=== PATIENT | male | born 1970 | race Caucasian/White ===

== ENCOUNTER 2024-11-02 07:39 | Emergency (ER) | payer MEDICARE, MEDICAID, SELFPAY ==
[2024-11-02 08:22] VITALS: BP 148/89; PULSE 106; RESP 18; TEMP 36.9; O2SAT 97
[2024-11-02 08:49] VITALS: PULSE 127; O2SAT 98; BMI 21.7
[2024-11-02 09:08] VITALS: BP 139/90; PULSE 103; RESP 16; TEMP 36.9; O2SAT 95
--- NOTE | 2024-11-02 09:54 | EDNOTE_ITS ---
ED General RME/HPI General Chief complaint: Alcohol Stated complaint: ALCOHOL WITHDRAWL Time Seen by Provider: 11/02/24 09:38 Arrival date/time: 11/02/24 07:39 RME / HPI RME / HPI narrative: A 53-year-old male with past medical history of hypertension, hyperlipidemia, alcoholism, marijuana use, and methamphetamine abuse presents to the ED brought in by ambulance from home with complaints of nausea/vomiting and tremors due to alcohol withdrawl. He complained of nausea and vomiting associated with sharp, needle-like chest pain. He described his chest pain as moderate, not associated with jaw radiation, arm radiation or diaphoresis. Patient noted his symptoms are similar to previous alcohol withdrawals and believes he is going through withdrawals. Last drank beer was yesterday at about 2 PM on 11/01/2024. CIWA of 4 in the ED with tachycardia at 114 on monitor. States he normally drinks 4 cans of24oz malt liquor. Allergies: None. Medications: Amlodipine, benazepril, and atorvastatin. Family history: Brother?alcohol abuse. Denies any prior surgeries. Denies any illicit drug use, endorses using marijuana. While in the ED, he is requesting to please help me. I do not want to drink anymore. MD complaint: Alcohol withdrawal Onset (ago): hour(s) Severity: moderate Relieving factors: none Associated symptoms: nausea/vomiting Related Data Home Medications ?Medication ?Instructions ?Recorded ?Confirmed benazepril 40 mg tablet 40 mg PO BID 11/20/19 07/25/20 triamterene 37.5 1 tab PO QDAY 11/20/19 07/25/20 mg-hydrochlorothiazide 25 mg tablet amlodipine 5 mg tablet 5 mg PO BID 12/07/19 07/25/20 atorvastatin 80 mg tablet 80 mg PO QDAY 12/07/19 07/25/20 lansoprazole 30 mg capsule,delayed 30 mg PO QDAY PRN HEART BURN 12/07/19 07/25/20 release lorazepam 0.5 mg tablet 0.5 mg PO QDAY PRN Anxiety 07/25/20 07/25/20 Previous Rx's ?Medication ?Instructions ?Recorded chlordiazepoxide HCl 25 mg capsule 50 mg (2 x 25 mg) PO BID PRN 11/02/24 alcohol withdrawal 4 days #12 caps Allergies Allergy/AdvReac Type Severity Reaction Status Date / Time No Known Allergies Allergy Verified 04/07/24 10:04 Review of Systems Review of Systems Systems Reviewed: All systems reviewed, normal except as documented ED Exam Narrative Physical exam: Constitutional: well-developed male looks older than his stated age, in no acute distress, lying in bed. HEENT: NCAT, EOMI, reactive round pupils b/l, patent nares b/l,dry mucous membranes. Lung: CTAB, no wheezing, no rhonchi, no crackles. Saturating 98% on room air Heart: Tachycardia, no murmurs, gallops, or rubs Abdomen: Soft, non-distended, non-tender, ++bowel sounds Extremities: No cyanosis, clubbing, no edema of b/l legs, 2+ dorsalis pedis pulses present b/l Neurologic: No focal sensory or motor deficits noted, AOx3, appropriate affect Skin: Warm, dry, seborrheic dermatitis of the b/l eyebrows and forehead noted Course Quality Measures none Orders Category Date Time Status Folic Acid Med 11/02/24 21:00 Discontinued 1 mg PO BID Folic Acid Inj Med 11/02/24 09:43 Discontinued 1 mg IVP X1 ONE LORazepam [Ativan Inj] Med 11/02/24 09:37 Active 1 mg IV X1 PRN Magnesium Sulfate 2 GM Ivpb [Magnesium Sulfate Ivpb] Med 11/02/24 09:43 Active 2 gm in 50 ml IV X1 Sodium Chloride 0.9% 1000 ml [Ns] 1,000 ml Med 11/02/24 10:12 Ordered IV 999 mls/hr Thiamine Inj [Vitamin B-1 Inj] Med 11/02/24 09:43 Discontinued 100 mg IVP X1 ONE Thiamine [Vitamin B-1] Med 11/02/24 21:00 Discontinued 100 mg PO BID Vital Signs Vital signs: Vital Signs Temperature 98.4 F 11/02/24 08:22 Pulse Rate 106 H 11/02/24 08:22 Respiratory Rate 18 11/02/24 08:22 Blood Pressure 148/89 H 11/02/24 08:22 Pulse Oximetry (%) 97 11/02/24 08:22 Oxygen Delivery Method Room Air 11/02/24 08:22 [facility] Patient data External records reviewed:: None Clinical information provided by:: patient Social determinants that could affect healthcare access:: alcohol use Patient has the following chronic illnesses:: Hypertension, hyperlipidemia, polysubstance abuse How is presenting disease/condition affected by chronic disease/condition?: exacerbated by Evaluation data The following diagnostics were reviewed and interpreted by me:: other (specify) (None) Lab and/or radiology exams considered but not ordered:: None Interpretation Summary: None Medications Medications considered but not ordered:: None Medication administrations:: Medication Administration History Magnesium Sulfate (Magnesium Sulfate Ivpb) 2 gm in 50 mls @ 25 mls/hr IV X1 ONE Stop: 11/02/24 11:42 Sodium Chloride (Ns) 1,000 mls @ 999 mls/hr IV .Q1H1M ONE Stop: 11/02/24 11:12 Lorazepam (Lorazepam 2 Mg/Ml Vial) 1 mg IV X1 PRN PRN Reason: Breakthrough Agitation Discontinued Medications Folic Acid (Folic Acid 1 Mg Tablet) 1 mg PO BID ENIO Stop: 11/07/24 20:59 Folic Acid (Folic Acid Inj 1 Mg/0.2 Ml) 1 mg IVP X1 ONE Stop: 11/02/24 09:44 Thiamine HCl (Thiamine 100 Mg Tablet) 100 mg PO BID ENIO Stop: 11/07/24 20:59 Thiamine HCl (Thiamine Inj 100 Mg/Ml Vial 2 Ml) 100 mg IVP X1 ONE Stop: 11/02/24 09:44 Magnesium, Ativan, banana bag Consultations Consultation(s) initiated? (list below): No Diagnosis Differential Diagnosis ED Complaint MDM: Alcohol use disorder Most likely diagnosis given after review of the tests above:: Alcohol withdrawals Admission Indicated Admission indicated?: not indicated Explain why admission is indicated or not indicated:: Admission is not indicated patient has a low CIWA score of 4. His last drink was 1 day ago. Admission Request Was there a request for admission?: No Disposition Plan Disposition Plan: Discharge Discharge Attestation Discharge Attestation: The patient and all family members were given an opportunity to ask questions and understood the discharge instructions. Discharge instructions specifically effects, indications for sooner follow up or return to the emergency department, and the expected course of current diagnosis. Patient condition: Stable Medical Decision Making MDM Narrative MDM Narrative: A 53-year-old male with past medical history of hypertension, hyperlipidemia, alcoholism, marijuana use, and methamphetamine abuse presents to the ED brought in by ambulance from home with complaints of nausea/vomiting and tremors due to alcohol withdrawl. He experienced nausea and vomiting associated with non- radiating sharp, needle-like chest pain. Patient noted his symptoms are similar to previous alcohol withdrawals and believes he is going through withdrawals. His last drank beer was yesterday at about 2 PM on 11/01/2024. CIWA of 4 with tachycardia are indicative of mild alcohol withdrawal. He does not have any sign of active infection--denies fever, chills, shortness of breath, dizziness, weakness, constipation, or diarrhea. Patient no longer has nausea or vomiting in the ED. Fluids, banana bag, and Ativan ordered for patient to ED. Once patient is stable, he will be discharged home with Librium. Patient informed to follow-up with his PCP in 1 week. Differential Diagnosis Differential Diagnosis: Alcohol use disorder Medical Records Medical records reviewed: Yes I reviewed the patient's medical records. Discharge Plan Plan Patient Disposition: HOME (Self Care) Health Concerns: Please follow up with PCP in 5-7 days. Prescriptions/Referrals Prescriptions/Med Rec: New chlordiazepoxide HCl 25 mg capsule 50 mg PO BID PRN (Reason: alcohol withdrawal) 4 Days Qty: 12 0RF No Action atorvastatin 80 mg tablet 80 mg PO QDAY amlodipine 5 mg tablet 5 mg PO BID lansoprazole 30 mg capsule,delayed release(DR/EC) 30 mg PO QDAY PRN (Reason: HEART BURN) benazepril 40 mg Tablet 40 mg PO BID triamterene-hydrochlorothiazid 37.5-25 mg Tablet 1 tab PO QDAY lorazepam 0.5 mg Tablet 0.5 mg PO QDAY PRN (Reason: Anxiety) Problem List Clinical Impression: Alcoholic intoxication, Alcohol withdrawal syndrome Patient/Caregiver Discharge Instructions Print Language: Amharic Stand Alone Forms: Rosalind Award Info., Patient Portal Info Letter
[2024-11-02] MEDS: FOLIC ACID INJ 1 MG/0.2 ML IVP (10:49)
[2024-11-02] MEDS: Magnesium Sulfate 2 GM Ivpb 2 GM/50 ML BAG IV (10:50)
[2024-11-02] MEDS: SODIUM CHLORIDE 0.9% 1000 ML 1,000 ML 999 ML IV (10:51)
[2024-11-02] MEDS: LORazepam 2 MG/ML VIAL 1 MG IV (10:51)
[2024-11-02] MEDS: THIAMINE INJ 100 MG/ML VIAL 2 ML IVP (10:51)
[2024-11-02 11:08] VITALS: BP 147/104; PULSE 107; RESP 18; TEMP 37; O2SAT 97
[2024-11-02 14:23] VITALS: BP 174/119; PULSE 119; RESP 20; TEMP 37.9; O2SAT 95
== END 2024-11-02 15:40 | disposition home or self-care (01) ==
PROVIDERS: Emergency Provider Emergency Medicine; PCP Internal Medicine
DX: F10.929 Alcohol use, unspecified with intoxication, unspecified (principal); F10.939 Alcohol use, unspecified with withdrawal, unspecified; Y90.9 Presence of alcohol in blood, level not specified
CPT/HCPCS: 96360; 99284; J2060; J3411; J3475; J3490; J7030

== ENCOUNTER 2024-12-14 22:16 | Emergency (ER) | payer MEDICARE, MEDICAID, SELFPAY ==
[2024-12-14 22:27] VITALS: BP 131/90; PULSE 96; RESP 19; TEMP 36.6; O2SAT 99; BMI 20.7
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
[2024-12-14] MEDS: BACITRACIN OINT 1 GM PACKET TOP (22:50)
[2024-12-14 22:56] VITALS: RESP 18
== END 2024-12-14 22:56 | disposition home or self-care (01) ==
LOC: SERX 12-15 00:22
PROVIDERS: Emergency Provider Emergency Medicine
DX: S60.812A Abrasion of left wrist, initial encounter (principal); W19.XXXA Unspecified fall, initial encounter; Y92.149 Unspecified place in prison as the place of occurrence of the external cause
CPT/HCPCS: 99282; A9270

== ENCOUNTER 2024-12-21 08:58 | Emergency (ER) | payer MEDICAID, SELFPAY ==
[2024-12-21 09:15] VITALS: BP 104/72; PULSE 80; RESP 16; TEMP 36.9; O2SAT 100
[2024-12-21 09:35] VITALS: PULSE 85; RESP 18; BMI 21.4
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
--- NOTE | 2024-12-21 09:53 | XR_ITS ---
Examination: CT brain head without contrast. 2-D sagittal coronal reconstructions Date and time of exam:December 21, 2024 1019 hours INDICATIONS: Patient fell today with injury to the head laceration to the right side of the head CTDI: vol (mGy):47 DLP: (mGycm):987 Technique: Multiple CT axial sections of the brain have been obtained, 5 mm slice thickness. Contrast has not been administered. 2-D sagittal, coronal reconstructions have been obtained Low dose protocols were performed. One or more of the following dose reduction techniques were used; automated exposure control, adjustment of the mA and/or KV according to patient size, use of iterative reconstruction technique. Findings: Patient motion degrades scan image quality No gross hemorrhage mass effect or midline shift Cranial vault appears intact IMPRESSION: Patient motion degrades scan image quality No gross hemorrhage mass effect or midline shift
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
--- NOTE | 2024-12-21 10:40 | PC.NURSE ---
PATIENT OBSERVED LEAVING ER BY STAFF AND SECURITY. PATIENT ELOPED BEFORE MEDICAL SCREENING.
== END 2024-12-21 10:56 | disposition left against medical advice (07) ==
LOC: SERX 10:38
PROVIDERS: Emergency Provider Emergency Medicine
DX: S09.90XA Unspecified injury of head, initial encounter (principal); I10 Essential (primary) hypertension; W19.XXXA Unspecified fall, initial encounter; Z53.29 Procedure and treatment not carried out because of patient's decision for other reasons
CPT/HCPCS: 70450; 90471; 99281

== ENCOUNTER 2025-05-07 11:16 | Emergency (ER) | payer OTHER, MEDICAID, SELFPAY ==
[2025-05-07 11:18] VITALS: BP 116/68; PULSE 114; RESP 18; TEMP 36.9; O2SAT 96; BMI 20.7
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
== END 2025-05-07 12:55 | disposition left against medical advice (07) ==
LOC: SERX 12:33
PROVIDERS: Emergency Provider Emergency Medicine
DX: F10.10 Alcohol abuse, uncomplicated (principal); K70.30 Alcoholic cirrhosis of liver without ascites; R07.9 Chest pain, unspecified; Y90.9 Presence of alcohol in blood, level not specified; Z53.29 Procedure and treatment not carried out because of patient's decision for other reasons
CPT/HCPCS: 80053; 80307; 80320; 81001; 83605; 83690; 83735; 83880; 84484; 85025; 85379; 99281; G0480

== ENCOUNTER 2025-06-04 21:10 | Emergency (ER) | payer OTHER, MEDICAID, SELFPAY ==
[2025-06-04 21:12] VITALS: BP 157/90; PULSE 110; RESP 20; TEMP 36.8; O2SAT 95
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
--- NOTE | 2025-06-04 21:15 | XR_ITS ---
Examination: AP chest single view Technique AP portable upright chest single view Date and time: June 04, 2025 2131 hours Comparison April 07, 2024 INDICATIONS: Chest pain and shortness of breath today. FINDINGS: Normal heart size. Lungs are clear. The osseous structures are intact IMPRESSION: No active disease
--- NOTE | 2025-06-04 21:16 | XR_ITS ---
Examination: CT chest, without intravenous contrast. CT abdomen, without intravenous contrast. CT pelvis, without intravenous contrast. 2-D sagittal and coronal reconstructions. 3-D reconstructions. Date and time of exam:June 04, 2025 2145 hours INDICATIONS: Patient fell today with injury to the chest and abdomen, chest pain abdomen pain CTDI vol (mgy) 8.86 DLP (MGycm)7 23 Technique: Multiple CT images, 3.0 mm slice thickness, obtained chest, abdomen, pelvis, with the high-resolution 64 slice scanner.. Sagittal and coronal 2-D reconstructions are obtained. 3-D reconstructions Low dose protocols were performed. One or more of the following dose reduction techniques were used; automated exposure control, adjustment of the mA and/or KV according to patient size, use of iterative reconstruction technique. Finding: The thoracic aorta pulmonary arteries intact on this noncontrast study No pneumothorax pulmonary contusion or hemothorax The manubrium, the body of the sternum intact No thoracic or lumbar vertebral body compression fracture 6 mm pulmonary nodule right upper lobe image 147 Bilateral old rib fractures Subacute fractures left fifth and sixth ribs posterolaterally No visualized liver or splenic lesion Gallbladder wall appears thickened No pancreatic mass Aorta normal size, no free blood in the abdomen Negative for pneumoperitoneum Urinary bladder intact Hips bones of the pelvis intact Impression : Subacute healing fractures left fifth and sixth ribs posterolaterally Thoracic aorta and pulmonary arteries intact No hemopericardium No pneumothorax pulmonary contusion or hemothorax 6 mm pulmonary nodule right upper lobe, recommend 6 month follow-up CT chest without contrast to document stability of this nodule No abdominal parenchymal laceration Abdominal aorta intact No free blood in the abdomen or pelvis
--- NOTE | 2025-06-04 21:16 | XR_ITS ---
Examination: CT brain head without contrast. 2-D sagittal coronal reconstructions Date and time of exam:June 04, 2025 2147 hours Comparison December 21, 2024 INDICATIONS: Patient fell today with syndrome of the head, head pain CTDI: vol (mGy):49.4 DLP: (mGycm):920 Technique: Multiple CT axial sections of the brain have been obtained, 5 mm slice thickness. Contrast has not been administered. 2-D sagittal, coronal reconstructions have been obtained Low dose protocols were performed. One or more of the following dose reduction techniques were used; automated exposure control, adjustment of the mA and/or KV according to patient size, use of iterative reconstruction technique. Findings: No significant ventricular enlargement. Intra-axial or extra-axial hemorrhage density is not seen. No mass effect or midline shift Basal cisterns are not remarkable. Fourth ventricle is midline. Cranial vault intact. Impression: Negative for acute hemorrhage, mass effect or midline shift
--- NOTE | 2025-06-04 21:16 | XR_ITS ---
Examination: CT cervical spine without contrast 2-D sagittal reconstructions 2-D coronal reconstructions 3-D reconstructions. Exam date and time:June 04, 2025 2142 hours INDICATIONS: Patient fell today with symptoms of the neck, neck pain CTDI:vol (mGy) : 12.5. DLP: (mGycm) 375 Technique: Multiple 2 mm axial sections of the cervical spine have been obtained. The coronal and sagittal reconstructions have been obtained. 3-D reconstructions have been obtained. Low dose protocols were performed. One or more of the following dose reduction techniques were used; automated exposure control, adjustment of the mA and/or KV according to patient size, use of iterative reconstruction technique. Findings: Axial sections demonstrate intact base of the skull. C1 exhibit satisfactory relationship to the odontoid. No acute cervical vertebral body fracture seen. Alignment posterior spinous processes satisfactory. Impression: No acute cervical fracture.
--- NOTE | 2025-06-04 21:20 | XR_ITS ---
Examination: CT maxillofacial, without intravenous contrast. 2-D sagittal reconstructions. 3-D reconstructions. Date and time of exam:June 04, 2025 2144 hours INDICATIONS: Patient fell today with injury to the face, facial pain CTDI: vol (mGy):16 DLP: (mGycm):. 315. Technique: Multiple axial images of maxillofacial region, 3.0 mm slice thickness. 2-D sagittal and coronal reconstructions. 3-D reconstructions. Low dose protocols were performed. One or more of the following dose reduction techniques were used; automated exposure control, adjustment of the mA and/or KV according to patient size, use of iterative reconstruction technique. Findings: Frontal and frontal sinuses intact Orbital rims intact No nasal bone acute fracture No depression zygomatic arches Pterygoid plates maxilla and the mandible is intact IMPRESSION: No acute facial fracture.
[2025-06-04 21:28] VITALS: BMI 22.1
[2025-06-04 22:01] LABS: Base Excess 1 (-3-3); HCO3 26 mEq/L (20-26); Inspired Oxygen, FIO2 21 %; O2 Saturation 97 % (91-98); PCO2 40 mmHg (32.0-48.0); PO2 87 mmHg (83-108); pH, Arterial 7.41 (7.35-7.45)
[2025-06-04 22:03] LABS: Allen Test Performed/OK; Puncture Site Right Radial
[2025-06-04 22:11] LABS: Beta Hydroxybutyrate 0.1 mmol/L (<0.6)
[2025-06-04] MEDS: SODIUM CHLORIDE 0.9% 1000 ML 1,000 ML 999 ML IV ×2 (22:21→23:16)
[2025-06-04] MEDS: LORazepam 2 MG/ML VIAL 1.5 MG IVP (22:23)
[2025-06-04] MEDS: ONDANSETRON INJ 2 MG/ML INJ 2 ML 4 MG IVP (22:23)
[2025-06-04] MEDS: THIAMINE INJ 100 MG/ML VIAL 2 ML IVP (22:24)
[2025-06-04 22:32] LABS: Ammonia 11 uMol/L (11-32)
[2025-06-04 22:33] LABS: B-Type Natriuretic Peptide 28 pg/mL (0-100)
[2025-06-04 22:34] LABS: Basophils # (Auto) 0.1 Thou/mm3 (0.0-0.2); Basophils % (Auto) 1 % (0-2.5); Eosinophils # (Auto) 0.2 Thou/mm3 (0.0-0.5); Eosinophils % (Auto) 3 % (0-10); Hematocrit 32.1 % (41.0-53.0); Hemoglobin 10.5 g/dL (13.5-16.0); Immature Granulocytes Auto 0.02 Thou/mm3 (0.00-0.00); Lymphocytes # (Auto) 2.0 Thou/mm3 (1.0-4.8); Lymphocytes % (Auto) 27 % (10-50); Mean Corpuscular HGB Conc 32.7 g/dl (31.0-37.0); Mean Corpuscular Hemoglobin 29.6 pg (25.0-35.0); Mean Corpuscular Volume 90 fL (80-100); Monocytes # (Auto) 0.6 Thou/mm3 (0.0-0.8); Monocytes % (Auto) 8 % (0-12); Neutrophils # (Auto) 4.5 Thou/mm3 (1.8-7.7); Neutrophils % (Auto) 61 % (37-80); Nucleated Red Blood Cell # 0.00 Thou/mm3 (0.00-0.00); Nucleated Red Blood Cell % 0 /100 WBC (0); Platelet Count 263 Thou/mm3 (140-440); RDW Standard Deviation 55.8 fL (35.1-43.9); Red Blood Count 3.55 Miln/mm3 (4.50-5.90); White Blood Count 7.4 Thou/mm3 (3.8-10.6)
[2025-06-04 22:38] LABS: Acetaminophen < 2.0 mcg/mL (10.0-20.0); Alanine Aminotransferase 13 U/L (10-49); Albumin, Serum 4.3 gm/dL (3.5-5.0); Albumin/Globulin Ratio 1.9 (1.2-2.2); Alkaline Phosphatase 92 U/L (46-116); Anion Gap 11 (7-16); Aspartate Amino Transferase 23 U/L (0-34); BUN/Creatinine Ratio 18 Ratio (12-20); Bilirubin,Direct < 0.1 mg/dL (0.0-0.3); Bilirubin,Total 0.3 mg/dL (0.3-1.2); Blood Urea Nitrogen 11 mg/dL (9-23); Calcium 8.5 mg/dL (8.3-10.6); Calcium (Corrected) 8.5 mg/dL (8.5-10.1); Carbon Dioxide 24.7 mMol/L (20.0-31.0); Chloride 108 mMol/L (98-107); Creatine Kinase 153 U/L (34-171); Creatinine (Component) 0.6 mg/dL (0.6-1.3); Estimated Creatinine Clearance 137.0 mL/min (>60); Free T4 (Free Thyroxine) 0.95 ng/dL (0.89-1.76); Globulin 2.3 gm/dL (2.3-3.5); Glucose 114 mg/dL (74-106); Magnesium 1.9 mg/dL (1.6-2.6); Osmolality,Calculated 287 (275-295); Potassium 4.1 mMol/L (3.4-5.1); Salicylate < 3.0 mg/dL; Sodium 144 mMol/L (136-145); Thyroid Stimulating Hormone 1.63 uIU/mL (0.55-4.78); Total Protein 6.6 gm/dL (5.7-8.2); Troponin I < 0.002 ng/mL (0.0-0.045); eGFR > 60 See Note
[2025-06-04 22:51] LABS: Amylase 130 U/L (30-118); Lipase 40 U/L (12-53)
[2025-06-04 22:53] LABS: INR 0.9 (0.9-1.3); Partial Thromboplastin Time 26.3 Seconds (22.0-36.0); Prothrombin Time 10.1 Seconds (9.0-12.2)
[2025-06-04 23:13] LABS: Alcohol, Blood Medical 388.4 mg/dL (0-10.0)
[2025-06-04] MEDS: LORazepam 2 MG/ML VIAL IVP (23:14)
[2025-06-04 23:20] VITALS: BP 128/87; PULSE 97; RESP 20; TEMP 36.9; O2SAT 96
[2025-06-05 01:20] VITALS: BP 125/100; PULSE 100; RESP 20; TEMP 36.9; O2SAT 98
[2025-06-05] MEDS: SODIUM CHLORIDE 0.9% 1000 ML 1,000 ML 200 ML IV (03:00)
[2025-06-05 03:20] VITALS: BP 115/78; PULSE 88; RESP 20; TEMP 37.1; O2SAT 97
[2025-06-05] MEDS: LORazepam 2 MG/ML VIAL IVP (03:38)
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
[2025-06-05 05:20] VITALS: BP 125/88; PULSE 83; RESP 20; TEMP 37.1; O2SAT 96
[2025-06-05 05:42] LABS: Alcohol, Blood Medical 184.9 mg/dL (0-10.0)
--- NOTE | 2025-06-05 06:17 | PD.EDADDENDU ---
Emergency Room Addendum Addendum Narrative: 0600: Care assumed from Dr. Pryor, the previous shift emergency physician. Past medical, surgical, social and family history reviewed. Vitals and home medications reviewed. I will assume the care of the patient at this time, pending reassessment and final disposition. Please refer to the emergency department record for history and examination from initial visit.?The following addendum documentation note is intended to reflect any pending information, findings, or radiology results not included in the patient?s initial chart. 0748: Went in to evaluate the patient and appears he pulled out his IV and walked out of the ER.
--- NOTE | 2025-06-05 07:55 | PC.NURSE ---
patient eloped at 0745. ripped out iv and walked out of facility. iv noted on bed intact
== END 2025-06-05 08:16 | disposition left against medical advice (07) ==
PROVIDERS: Emergency Medicine; Emergency Provider Emergency Medicine
DX: F10.229 Alcohol dependence with intoxication, unspecified (principal); S22.42XA Multiple fractures of ribs, left side, initial encounter for closed fracture; S09.93XA Unspecified injury of face, initial encounter; R06.02 Shortness of breath; Y90.6 Blood alcohol level of 120-199 mg/100 ml; E78.00 Pure hypercholesterolemia, unspecified; I10 Essential (primary) hypertension; R51.9 Headache, unspecified; M54.2 Cervicalgia; W19.XXXA Unspecified fall, initial encounter; Y04.0XXA Assault by unarmed brawl or fight, initial encounter; Z53.29 Procedure and treatment not carried out because of patient's decision for other reasons
CPT/HCPCS: 36415; 36600; 70450; 70486; 71045; 71250; 72125; 74176; 80053; 80307; 80320; 80329; 81001; 82010; 82140; 82150; 82248; 82550; 82803; 83690; 83735; 83880; 84439; 84443; 84484; 85025; 85610; 85730; 93005; 96374; 96375; 96376; 99284; J2060; J2405; J3411; J7030; G0480

== ENCOUNTER 2025-06-18 09:48 | Emergency (ER) | payer OTHER, MEDICAID, SELFPAY ==
[2025-06-18 10:00] VITALS: BMI 22.1
[2025-06-18 10:03] VITALS: BP 118/75; PULSE 80; RESP 20; TEMP 36.9; O2SAT 99
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
== END 2025-06-18 10:30 | disposition left against medical advice (07) ==
PROVIDERS: Emergency Provider Family Medicine
DX: S09.90XA Unspecified injury of head, initial encounter (principal); Y04.0XXA Assault by unarmed brawl or fight, initial encounter; Z53.29 Procedure and treatment not carried out because of patient's decision for other reasons
CPT/HCPCS: 80053; 80320; 81001; 84484; 85025; 85610; 85730; 99283; G0480

== ENCOUNTER → 2025-06-21 | Outpatient (CLI) | payer MEDICARE, MEDICAID, SELFPAY ==
[2025-06-21 08:46] LABS: Basophils # (Auto) 0.1 Thou/mm3 (0.0-0.2); Basophils % (Auto) 1 % (0-2.5); Eosinophils # (Auto) 0.2 Thou/mm3 (0.0-0.5); Eosinophils % (Auto) 4 % (0-10); Hematocrit 36.6 % (41.0-53.0); Hemoglobin 11.7 g/dL (13.5-16.0); Immature Granulocytes Auto 0.01 Thou/mm3 (0.00-0.00); Lymphocytes # (Auto) 1.3 Thou/mm3 (1.0-4.8); Lymphocytes % (Auto) 23 % (10-50); Mean Corpuscular HGB Conc 32.0 g/dl (31.0-37.0); Mean Corpuscular Hemoglobin 30.0 pg (25.0-35.0); Mean Corpuscular Volume 94 fL (80-100); Monocytes # (Auto) 0.6 Thou/mm3 (0.0-0.8); Monocytes % (Auto) 11 % (0-12); Neutrophils # (Auto) 3.4 Thou/mm3 (1.8-7.7); Neutrophils % (Auto) 61 % (37-80); Nucleated Red Blood Cell # 0.00 Thou/mm3 (0.00-0.00); Nucleated Red Blood Cell % 0 /100 WBC (0); Platelet Count 460 Thou/mm3 (140-440); RDW Standard Deviation 55.5 fL (35.1-43.9); Red Blood Count 3.90 Miln/mm3 (4.50-5.90); White Blood Count 5.5 Thou/mm3 (3.8-10.6)
[2025-06-21 08:48] LABS: Glucose Estimated Average 105 mg/dL (80-131); Hemoglobin A1C 5.3 % Hgb (4.8-6.0)
[2025-06-21 09:05] LABS: Alanine Aminotransferase 14 U/L (10-49); Albumin, Serum 4.5 gm/dL (3.5-5.0); Albumin/Globulin Ratio 1.7 (1.2-2.2); Alkaline Phosphatase 95 U/L (46-116); Anion Gap 10 (7-16); Aspartate Amino Transferase 21 U/L (0-34); BUN/Creatinine Ratio 10 Ratio (12-20); Bilirubin,Total 0.4 mg/dL (0.3-1.2); Blood Urea Nitrogen 8 mg/dL (9-23); Calcium 9.0 mg/dL (8.3-10.6); Calcium (Corrected) 9.0 mg/dL (8.5-10.1); Carbon Dioxide 26.4 mMol/L (20.0-31.0); Cardiac Risk Estimate 2.4 RATIO (4.0-6.7); Chloride 104 mMol/L (98-107); Cholesterol 185 mg/dL (132-200); Creatinine (Component) 0.8 mg/dL (0.6-1.3); Free T4 (Free Thyroxine) 1.04 ng/dL (0.89-1.76); Globulin 2.6 gm/dL (2.3-3.5); Glucose 106 mg/dL (74-106); HDL Cholesterol 77 mg/dL (40-60); LDL Cholesterol,Calculated 91 mg/dL (0-130); Osmolality,Calculated 277 (275-295); Potassium 4.4 mMol/L (3.4-5.1); Sodium 140 mMol/L (136-145); Thyroid Stimulating Hormone 2.39 uIU/mL (0.55-4.78); Total Protein 7.1 gm/dL (5.7-8.2); Triglycerides 84 mg/dL (30-150); eGFR > 60 See Note
[2025-06-21 09:09] LABS: Vitamin B12 604 pg/mL (211-911); Vitamin D 25 Hydroxy Total 27.6 ng/mL (7.3-40.2)
== END | disposition home or self-care (01) ==
LOC: COPL 07:44
PROVIDERS: PCP Internal Medicine; Referring Provider Internal Medicine; Visit Provider Internal Medicine
DX: Z00.00 Encounter for general adult medical examination without abnormal findings (principal); E11.9 Type 2 diabetes mellitus without complications; E55.9 Vitamin D deficiency, unspecified
CPT/HCPCS: 36415; 80053; 80061; 82306; 82607; 83036; 84439; 84443; 85025

== ENCOUNTER → 2025-06-27 | Outpatient (CLI) | payer MEDICARE, MEDICAID, SELFPAY ==
[2025-06-30 06:28] LABS: Fecal Globin Result NOT DETECTED (NOT DETECTED)
== END | disposition home or self-care (01) ==
LOC: SLDO 08:09
PROVIDERS: Referring Provider Internal Medicine; Visit Provider Internal Medicine
DX: Z00.00 Encounter for general adult medical examination without abnormal findings (principal)
CPT/HCPCS: 82274; G0328

== ENCOUNTER → 2025-07-12 | Outpatient (CLI) | payer MEDICARE, MEDICAID, SELFPAY ==
--- NOTE | 2025-07-12 10:30 | XR_ITS ---
Examination: Abdomen sonogram, complete Date and time of exam: July 12, 2025, 1013 hours INDICATIONS: Elevated liver function tests on laboratory examination June 21, 2025.. Technique: Multiple real-time grayscale transabdominal sonographic images of the abdomen have been obtained. Findings: Normal gallbladder. Normal common bile duct 0.5 cm Mid and distal aorta obscured by bowel gas Liver 14.5 cm fatty infiltration Normal hepatopedal portal venous flow. Patent IVC Right kidney 13.5 cm the cortex 1.6 cm Left kidney 11.0 cm and the cortex 2.7 cm No hydronephrosis The spleen 9.4 cm IMPRESSION: Normal gallbladder Fatty infiltration throughout the liver.
== END | disposition home or self-care (01) ==
PROVIDERS: PCP Internal Medicine; Referring Provider Internal Medicine; Visit Provider Internal Medicine
DX: K76.0 Fatty (change of) liver, not elsewhere classified (principal)
CPT/HCPCS: 76700

== ENCOUNTER 2025-09-11 08:49 | Emergency (ER) | payer OTHER, MEDICAID, SELFPAY ==
[2025-09-11 09:38] VITALS: BP 153/100; PULSE 70; RESP 19; TEMP 36.8; BMI 21.0
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
[2025-09-11] MEDS: DOXYCYCLINE 100 MG TABLET PO (10:12)
[2025-09-11] MEDS: DIPHTH,PERTUSS(ACELL),TET VAC 0.5 ML SYR- ADULT IMi (10:13)
[2025-09-11 11:23] LABS: Amphetamine/Methamp Scrn,U Negative (Negative); Barbiturate Screen,Urine Negative (Negative); Benzodiazepines Screen,Urine Negative (Negative); Benzoylecgonine Screen, Ur Negative (Negative); Fentanyl Screen,Urine Negative (Negative); Opiate Screen,Urine Negative (Negative); THC Screen,Urine Negative (Negative)
--- NOTE | 2025-09-11 11:30 | PC.NURSE ---
PT CALLED INSIDE/OUTSIDE ED LOBBY; NO RESPONSE AT THIS TIME
--- NOTE | 2025-09-11 11:50 | PC.NURSE ---
PT CALLED IN LOBBY AND OUTSIDE W/ NO ANSWER; SECOND CALL W/ NO ANSWER.
--- NOTE | 2025-09-11 12:38 | PC.NURSE ---
PT CALLED IN LOBBY AND OUTSIDE W/ NO ANSWER; THIRD CALL. PT ELOPED.
== END 2025-09-11 12:39 | disposition left against medical advice (07) ==
PROVIDERS: Nurse Practitioner Family; Emergency Provider Emergency Medicine; PCP Internal Medicine
DX: T59.811A Toxic effect of smoke, accidental (unintentional), initial encounter (principal); T31.0 Burns involving less than 10% of body surface; T22.20XA Burn of second degree of shoulder and upper limb, except wrist and hand, unspecified site, initial encounter; X08.8XXA Exposure to other specified smoke, fire and flames, initial encounter
CPT/HCPCS: 80307; 80320; 90715; 99281; A9270; G0480